=== PATIENT | female | born 1960 ===

== ENCOUNTER 2024-07-17 11:43 | Inpatient (IN) | payer OTHER ==
[~2024-07-17] VITALS: Ht 157.5 cm; Wt 73.5 kg
[2024-07-23] MEDS ORDERED: CEFTRIAXONE SODIUM 2,000 MG VIAL ONE (10:58)
[2024-07-23] MEDS ORDERED: METRONIDAZOLE/SODIUM CHLORIDE 500 MG/100 ML PIGGYBACK IV ONE ×2 (10:58→17:29)
[2024-07-23] MEDS ORDERED: BUPIVACAINE HCL 30 ML VIAL IJ ONE (12:45)
[2024-07-23] MEDS ORDERED: LIDOCAINE HCL 1%/EPINEPHRINE 20ML VIAL IJ ONE (12:45)
[2024-07-23] MEDS ORDERED: MORPHINE SULFATE 4 MG/ML CARTRIDGE IV PRN (13:45)
[2024-07-23] MEDS ORDERED: ONDANSETRON HCL 2 MG/ML VIAL IV PRN (13:45)
[2024-07-23] MEDS ORDERED: OxyCODONE HCL 5 MG TABLET (ROXICODONE) PO PRN (13:45)
[2024-07-23] MEDS ORDERED: DEXTROSE 50 % IN WATER 0.5 G/ML VIAL IV PRN (13:45)
[2024-07-23] MEDS ORDERED: 0.9 % SODIUM CHLORIDE 1,000 ML IV SCH (13:45)
[2024-07-23] MEDS ORDERED: MORPHINE SULFATE 4 MG/ML VIAL IV ONE ×2 (13:55→17:30)
[2024-07-23] MEDS ORDERED: ACETAMINOPHEN 500 MG GEL..CAP PO SCH (14:00)
[2024-07-23] MEDS ORDERED: HYOSCYAMINE SULFATE 0.125 MG TAB.SUBL SL SCH (17:00)
[2024-07-23] MEDS ORDERED: POLYETHYLENE GLYCOL 3350 17 GM BLIST.PACK PO SCH (17:00)
[2024-07-23] MEDS ORDERED: GABAPENTIN 300 MG CAPSULE PO SCH (17:00)
[2024-07-23] MEDS ORDERED: METRONIDAZOLE/SODIUM CHLORIDE 500 MG/100 ML PIGGYBACK IV SCH (17:00)
[2024-07-23] MEDS ORDERED: HYOSCYAMINE SULFATE 0.125 MG TAB.SUBL ONE (17:36)
[2024-07-23] MEDS ORDERED: GABAPENTIN 300 MG CAPSULE PO ONE (17:36)
[2024-07-23 17:50] LABS: BASO % 0.2 % (0.1-1.2); HEMOGLOBIN 12.4 g/dL (11.2-15.7); LYMPH # 0.79 (1.18-3.74); LYMPH % 6.7 % (19.3-53.1); MEAN CORPUSCULAR HEMOGLOBIN 30.7 pg (25.6-32.2); MONO # 0.62 (0.24-0.82); MONO % 5.3 % (4.7-12.5); NEUT # 10.32 (1.56-6.13); NEUT % 87.5 % (34.0-71.1); PLATELET COUNT 190 K/uL (163-369); RED BLOOD COUNT 4.04 M/uL (3.93-5.22); RED CELL DISTRIBUTION WIDTH 12.7 % (11.6-14.4)
[2024-07-23 18:24] LABS: ALBUMIN 3.6 gm/dL (3.4-5.0); CALCIUM 9.2 mg/dL (8.5-10.1); CREATININE SERUM 0.57 mg/dL (0.55-1.02); GFR 106.78; MAGNESIUM 1.9 mg/dL (1.8-2.4); PHOSPHOROUS 3.6 mg/dL (2.5-4.9); POTASSIUM 4.72 mEq/L (3.5-5.1)
[2024-07-23 18:30] VITALS: BP 144/76; O2SAT 95
[2024-07-23] MEDS ORDERED: CELECOXIB 200 MG CAPSULE PO SCH (21:00)
[2024-07-23] MEDS ORDERED: FAMOTIDINE/PF 20 MG/2 ML VIAL IV PUSH SCH (21:00)
[2024-07-24 00:27] VITALS: BP 101/57; O2SAT 96
[2024-07-24 08:00] LABS: BASO % 0.3 % (0.1-1.2); EOS # 0.08 (0.04-0.54); EOS % 0.9 % (0.7-7.0); HEMATOCRIT 33.7 % (34.1-44.9); HEMOGLOBIN 11.2 g/dL (11.2-15.7); LYMPH # 2.37 (1.18-3.74); LYMPH % 27.4 % (19.3-53.1); MEAN CORPUSCULAR HEMOGLOBIN 30.8 pg (25.6-32.2); MONO # 0.88 (0.24-0.82); MONO % 10.2 % (4.7-12.5); NEUT # 5.28 (1.56-6.13); NEUT % 61.1 % (34.0-71.1); PLATELET COUNT 189 K/uL (163-369); RED BLOOD COUNT 3.64 M/uL (3.93-5.22)
[2024-07-24 08:10] LABS: CALCIUM 8.5 mg/dL (8.5-10.1); CREATININE SERUM 0.74 mg/dL (0.55-1.02); GFR 79.01; MAGNESIUM 2.1 mg/dL (1.8-2.4); PHOSPHOROUS 3.4 mg/dL (2.5-4.9); POTASSIUM 4.48 mEq/L (3.5-5.1)
[2024-07-24 08:29] VITALS: BP 95/56; O2SAT 97
[2024-07-24 16:00] VITALS: BP 124/71; O2SAT 94
[2024-07-24] MEDS ORDERED: ENOXAPARIN SODIUM 40 MG/0.4 ML SYRINGE SUBCUTANEO SCH (17:00)
[2024-07-25 00:49] VITALS: BP 105/67; O2SAT 98
[2024-07-25 06:20] LABS: BASO % 0.2 % (0.1-1.2); EOS # 0.22 (0.04-0.54); EOS % 2.6 % (0.7-7.0); HEMATOCRIT 31.5 % (34.1-44.9); HEMOGLOBIN 10.4 g/dL (11.2-15.7); LYMPH # 1.56 (1.18-3.74); LYMPH % 18.3 % (19.3-53.1); MEAN CORPUSCULAR HEMOGLOBIN 30.4 pg (25.6-32.2); MONO # 0.59 (0.24-0.82); MONO % 6.9 % (4.7-12.5); NEUT % 71.6 % (34.0-71.1); PLATELET COUNT 188 K/uL (163-369); RED BLOOD COUNT 3.42 M/uL (3.93-5.22); RED CELL DISTRIBUTION WIDTH 13.1 % (11.6-14.4)
[2024-07-25 08:34] VITALS: BP 125/66; O2SAT 95
[2024-07-25 08:39] LABS: CALCIUM 8.5 mg/dL (8.5-10.1); CREATININE SERUM 0.57 mg/dL (0.55-1.02); GFR 106.78; MAGNESIUM 1.9 mg/dL (1.8-2.4)
[2024-07-25] MEDS ORDERED: ENOXAPARIN SODIUM 40 MG/0.4 ML SYRINGE SUBCUTANEO SCH (09:00)
[2024-07-25] MEDS ORDERED: POTASSIUM PHOS,M-BASIC-D-BASIC 3 MM/ML VIAL IV NR (09:30)
[2024-07-25] MEDS ORDERED: SOD FERRIC GLUC COMPLX/SUCROSE 62.5 MG in 0.9 % SODIUM CHLORIDE 50 ML IV SCH (10:32)
[2024-07-25] MEDS ORDERED: Cyanocobalamin/Mecobalamin 1 TAB.SL SL NR (10:45)
[2024-07-25] MEDS ORDERED: SODIUM CL 0.9% 50 ML IV.SOLN IV ONE (11:30)
[2024-07-25 12:21] LABS: POTASSIUM 4.27 mEq/L (3.5-5.1)
[2024-07-25 16:00] VITALS: BP 131/77; O2SAT 99
[2024-07-26 01:04] VITALS: BP 92/62; O2SAT 100
[2024-07-26 08:34] VITALS: BP 151/75; O2SAT 95
[2024-07-26] MEDS ORDERED: Cyanocobalamin/Mecobalamin 1 TAB.SL SL SCH (09:00)
[2024-07-26] MEDS ORDERED: PEPCID AC20 MG PO (10:24)
[2024-07-26] MEDS ORDERED: HYOSCYAMINE0.125 M1 SL (10:24)
[2024-07-26] MEDS ORDERED: TRAM1TAB98 PO (10:24)
[2024-07-26] MEDS ORDERED: INTEGRA F CAPS1 EACH PO (10:25)
== END 2024-07-26 12:15 | disposition home or self-care (01) | DRG 331 ==
LOC: O/R 07-23 08:00 → SURH 07-23 08:00
PROVIDERS: Internal Medicine Geriatric Medicine; ADMIT Surgery; ATTEND Surgery
PROC: 0DBP4ZZ Excision of Rectum, Percutaneous Endoscopic Approach (ICD-10-PCS; 2024-07-23)
PROC: 0DJD8ZZ Inspection of Lower Intestinal Tract, Via Natural or Artificial Opening Endoscopic (ICD-10-PCS; 2024-07-23)
PROC: 0DTN4ZZ Resection of Sigmoid Colon, Percutaneous Endoscopic Approach (ICD-10-PCS; principal; 2024-07-23 16:15)
DX: K57.20 Diverticulitis of large intestine with perforation and abscess without bleeding (principal); D64.9 Anemia, unspecified; R19.4 Change in bowel habit